=== PATIENT | female | born 1935 | race African-American/Black ===

== ENCOUNTER 2017-03-13 22:30 | Emergency (ER) | payer OTHER ==
[~2017-03-13 22:30] MED LIST: ASPIRINEC; B-650 MG PO; CAPOZIDE; CARDIZEM; CARITA; ISONIAZID300 MG PO; MICRO-K; PRINIVIL10 MG PO; ROBAXIN; VICODIN 5/500 T1 TAB; ZANTAC150 MG PO; ZOCOR
== END 2017-03-13 23:07 | disposition home or self-care (01) ==
LOC: SED 22:30
DX: K04.7 Periapical abscess without sinus (principal); F03.90 Unspecified dementia, unspecified severity, without behavioral disturbance, psychotic disturbance, mood disturbance, and anxiety
CPT/HCPCS: 99282

== ENCOUNTER 2017-05-25 22:40 | Emergency (ER) | payer OTHER ==
--- NOTE | ~2017-05-25 | CT4 ---
[facility] A Service of [facility] RADIOLOGY TEXT RESULTS PATIENT: YESENIA GUTIERREZ LOCATION: SED : 34 UNIT #: [id number] AGE: [address]: CARLOS FELDER SEX: F ORDER DR: [id number] [address] [address] [id number] E MR#: [id number] Acc #: [id number] NAME: YESENIA GUTIERREZ : 1935 SEX: F STUDY DATE/TIME: 05/26/2017 1:15 UNIT: SED ROOM: STUDY DESCRIPTION: CT Abd and Pelv Wo Cont Attending Physician: Carlos Felder Aprn Ordering Physician: Carlos Felder Aprn Primary Care Physician: Primary Care Physician No MEDICAL IMAGING REPORT This report is preliminary unless electronic signature is present. EXAM CT scan of the abdomen and pelvis without contrast INDICTIONS Low abdomen pain and back pain since 3 p.m. yesterday. There is no comparison Axial 3 mm images were obtained through the abdomen and pelvis without IV or oral contrast. The CT exam was performed with one or more of the following radiation dose reduction techniques: automatic exposure control, adjustment of mA and/or kV according to patient size, and iterative reconstruction. FINDINGS The lung bases are clear. The liver, spleen, pancreas, and adrenal glands are normal. The right kidney has a 3.8 cm cyst. The left kidney has a 1.7 cm cyst. The kidneys are otherwise normal. The aorta is normal in size and there is no adenopathy. The bowel is normal. There is no evidence of appendicitis. The bladder, uterus and adnexal regions are normal. There are marked degenerative changes in the lumbar spine. IMPRESSION 1. 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 There is no fracture or subluxation. 2. No evidence of appendicitis or bowel inflammation. 3. Bilateral renal cysts which are incidental and need no followup. [facility] A Service of [facility] RADIOLOGY TEXT RESULTS PATIENT: YESENIA GUTIERREZ LOCATION: SED : 34 UNIT #: [id number] AGE: [address]: CARLOS FELDER SEX: F ORDER DR: Dictated by... Narciso Vasques M.D. THIS IS AN ELECTRONICALLY VERIFIED REPORT Narciso Vasques M.D. at 05/26/2017 1:31 PM BRITTANY/lucio TD: 05/26/2017 12:58 JOB #: [id number] MEDICAL IMAGING REPORT Page 1 of 1
--- NOTE | ~2017-05-25 | CR63 ---
[facility]. [facility] A Service of [facility] RADIOLOGY TEXT RESULTS PATIENT: YESENIA GUTIERREZ LOCATION: SED : 34 UNIT #: [id number] AGE: [address]: CARLOS FELDER SEX: F ORDER DR: [id number] [address] [address] [id number] E MR#: [id number] Acc #: [id number] NAME: YESENIA GUTIERREZ : 1935 SEX: F STUDY DATE/TIME: 05/26/2017 1:02 UNIT: SED ROOM: STUDY DESCRIPTION: CR Chest 2 View Attending Physician: Carlos Felder Aprn Ordering Physician: Carlos Felder Aprn Primary Care Physician: No Primary Care Physician MEDICAL IMAGING REPORT This report is preliminary unless electronic signature is present. EXAM PA and lateral chest. INDICATION Low back since 3 p.m. and shortness of air since 3 p.m. FINDINGS A PA and lateral view of the chest were obtained and compared to 05/16/2006. The heart size and vascularity are normal. The aorta appears tortuous. Lungs are clear. The bones are normal. IMPRESSION No active disease. Dictated by... Narciso Vasques M.D. THIS IS AN ELECTRONICALLY VERIFIED REPORT Narciso Vasques M.D. at 05/26/2017 1:31 PM FEL/josette TD: 05/26/2017 12:54 JOB #: [id number] MEDICAL IMAGING REPORT Page 1 of 1
[2017-05-26 00:42] LABS: BASOPHIL# 0.1 X10e3 (0-0.3); BASOPHIL% 0.5 % (0-2.5); EOSINOPHIL% 0.1 % (0.0-7.0); HEMATOCRIT 38.3 % (35.0-45.0); HEMOGLOBIN 12.5 gm/dL (12.0-16.0); LYMPHOCYTE# 10.3 X10e3 (1.0-3.5); LYMPHOCYTE% 60.5 % (17.0-45.0); MEAN CELL VOLUME 90.2 FL (83-96); MEAN CORPUSCULAR HEMOGLOBIN 29.3 PG (28-34); MEAN CORPUSCULAR HGB CONC 32.5 g/dL (30-36); MEAN PLATELET VOLUME 8.2 FL (6.5-11.5); MONOCYTE# 0.8 X10e3 (0-1.0); MONOCYTE% 4.7 % (3.0-12.0); NEUTROPHIL# 5.8 X10e3 (1.5-7.1); NEUTROPHIL% 34.2 % (40-75); PLATELET COUNT 207 X10e3 (140-420); RED BLOOD COUNT 4.25 X10e (3.90-5.30); RED CELL DISTRIBUTION WIDTH 14.2 % (11.0-15.5); WHITE BLOOD COUNT 17.1 X10e3 (4.0-10.5)
[2017-05-26 00:47] LABS: DIFF IND YES
[2017-05-26 00:59] LABS: ALBUMIN SERUM 3.9 g/dL (3.5-5.0); BILIRUBIN, DIRECT 0.2 mg/dL (0.0-0.2); BILIRUBIN,INDIRECT 0.9 mg/dL (0.0-0.9); BILIRUBIN,TOTAL 1.1 mg/dL (0.2-2.0); CALCIUM SERUM 9.8 mg/dL (8.4-10.2); CREATININE SERUM 0.8 mg/dL (0.6-1.4); GLOM FILT RATE Estimated 79.6 mL/min (>60); POTASSIUM 3.9 mmol/L (3.5-5.1)
[2017-05-26 01:09] LABS: PLATELET ESTIMATE NORMAL (NORMAL)
[2017-05-26 01:10] LABS: ANISOCYTOSIS SL; POIKILOCYTOSIS SL; REACTIVE LYMPHS PRESENT; SMUDGE CELLS 25 /100
[2017-05-26 01:39] LABS: URINE SOURCE CLEAN CATCH
[2017-05-26 01:41] LABS: URINE APPEARANCE CLEAR; URINE BILIRUBIN NEG (NEG); URINE BLOOD 1+ (NEG); URINE COLOR YELLOW; URINE GLUCOSE NEG (NORM); URINE KETONE 1+ (NEG); URINE LEUKOCYTE ESTERASE NEG (NEG); URINE NITRATE NEG (NEG); URINE PH 6.5 (5-8); URINE PROTEIN NEG (NEG); URINE SPECIFIC GRAVITY 1.015 (1.003-1.035)
[2017-05-26 01:47] LABS: MICRO INDICATED? YES
[2017-05-26 01:48] LABS: CULTURE INDICATED? NO; URINE BACTERIA NEG (NEG); URINE SQUAMOUS EPITHELIAL CELL OCCAS /[HPF]; URINE WBC 0-2 /[HPF] (0-5)
== END 2017-05-26 02:00 | disposition home or self-care (01) ==
LOC: SED 22:40
PROVIDERS: Nurse Practitioner Family
DX: M54.5 Low back pain (principal); Z87.440 Personal history of urinary (tract) infections; Z79.899 Other long term (current) drug therapy
CPT/HCPCS: 36415; 71020; 74176; 80048; 80076; 81003; 83690; 85025; 99284